=== PATIENT | female | born 1980 | race Caucasian/White ===

== ENCOUNTER 2023-10-22 08:57 | Outpatient (OUT) | payer SELFPAY ==
--- NOTE | 2023-10-22 09:02 | MM_ITS ---
Patient Name: MARTHA VELEZ MR#: [id number] : 1980 Exam Date: 10/22/2023 Ordering Doctor: DR JEN HAMMOND . RADIOLOGY REPORT PROCEDURE: MM TOMOSYNTHESIS SCREENING BI COMPARISON: MG MAMM DX 3D RT CAD, 05/09/2022. MG MAMM DX 3D RT CAD, 11/18/2022. INDICATIONS: screening Calculator Name NCI Breast Cancer Risk Assessment Tool 5 Year Breast Cancer Risk Not Reported. Lifetime Breast Cancer Risk Not Reported. Personal Breast Cancer No Personal Ovarian Cancer No Treatments None Family Cancers None LOCATION: [facility] BREAST COMPOSITION: Heterogeneously dense,which may obscure small masses. FINDINGS: DIAGNOSTIC CATEGORY 2--BENIGN FINDING. NO CHANGE FROM COMPARISON. Scattered benign-appearing lymph nodes are present. RIGHT BREAST: No significant suspicious finding. LEFT BREAST: No significant suspicious finding. RECOMMENDATIONS: ROUTINE MAMMOGRAM AND CLINICAL EVALUATION IN 12 MONTHS. PLEASE NOTE: A NORMAL MAMMOGRAM DOES NOT EXCLUDE THE POSSIBILITY OF BREAST CANCER. A CLINICALLY SUSPICIOUS PALPABLE LUMP SHOULD BE BIOPSIED. Dictated by: Maxim Mckeon MD on 10/23/2023 at 09:37 Approved by: Maxim Mckeon MD on 10/23/2023 at 09:40
--- NOTE | 2023-10-22 09:30 | CA_ITS ---
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1980 Requested By: JEN HAMMOND Order Number: [id number] Reading MD: ALEXUS VELAZCO Interpretive Statements Predominant rhythm is sinus with average rate of 83 bpm Tachycardia - max rate of 140 bpm (sinus tachycardia) - longest episode of 26min 46sec with rates between 113-128 bpm Bradycardia - min rate of 54 bpm - longest episode of 30sec with rates between 55-58 bpm Ventricular ectopy - 61 total, < 1% - 61 PVC Patient triggered events: 7 - associated with symptoms of CP, palpitations, lightheadedness - associated with rate of 100 and the remainder NSR Impression: Predominant rhythm is sinus with average rate of 83 bpm Fastest rate of 140 bpm (sinus tachycardia) and slowest rate of 54 bpm 61 PVC No atrial fibrillation No blocks or pauses Electronically Signed On 11-02-2023 18:14:32 EDT by ALEXUS VELAZCO
[2023-10-22 10:08] LABS: Basophils Absolute Auto 0.1 10^3/uL (0.0-0.1); Basophils Percent Auto 0.5 % (0.2-2.0); Eosinophils Absolute Auto 0.1 10^3/uL (0.0-0.7); Hematocrit 40.7 % (36.0-48.0); Hemoglobin 13.1 g/dL (12.0-16.0); Immature Granulocytes Abs Auto 0.05 10^3/uL (0.00-0.03); Immature Granulocytes Pct Auto 0.5 % (0.0-0.5); Lymphocytes Absolute Auto 1.3 10^3/uL (1.2-3.8); Lymphocytes Percent Auto 12.7 % (20.5-60.0); Mean Corpuscular HGB Conc 32.2 g/dL (29.9-35.2); Mean Corpuscular Hemoglobin 31.1 pg (26.7-34.0); Mean Corpuscular Volume 96.7 fL (81.0-99.0); Mean Platelet Volume 9.5 fL (9.5-13.5); Monocytes Absolute Auto 0.5 10^3/uL (0.3-0.8); Monocytes Percent Auto 4.9 % (1.7-12.0); Neutrophils Absolute Auto 7.9 10^3/uL (1.4-6.5); Neutrophils Percent Auto 80.4 % (43.0-75.0); Platelet Count 283 10^3/uL (150-450); Red Blood Count 4.21 10^6/uL (4.20-5.40); Red Cell Distribution Width 12.4 % (11.0-15.0); White Blood Count 9.8 10^3/uL (4.0-11.0)
[2023-10-22 10:17] LABS: Estimated Average Glucose 105 mg/dL; Glycohemoglobin A1C 5.3 % (4.5-6.2)
[2023-10-22 10:44] LABS: Alanine Aminotransferase 27 U/L (14-59); Albumin Globulin Ratio 0.8; Albumin Level 3.5 g/dL (3.4-5.0); Alkaline Phosphatase 86 U/L (46-116); Anion Gap 15.2; Aspartate Amino Transferase 16 U/L (15-37); BUN Creatinine Ratio 11.4; Bilirubin Direct <0.1 mg/dL (0.0-0.2); Bilirubin Total 0.2 mg/dL (0.2-1.0); Calcium 8.8 mg/dL (8.5-10.1); Carbon Dioxide 24.9 mmol/L (21.0-32.0); Chloride 104 mmol/L (98-107); Chol HDL Ratio 3.2; Cholesterol 201 mg/dL (<=200); Estimated GFR (African America >60 (>=60); Estimated GFR (Non-African Ame >60 (>=60); Globulin 4.3 g/dL; Glucose 97 mg/dL (74-106); HDL Cholesterol 62 mg/dL (40-60); Potassium 4.1 mmol/L (3.5-5.1); Sodium 140 mmol/L (136-145); Thyroid Stimulating Hormone 1.478 uIU/mL (0.358-3.740); Total Protein 7.8 g/dL (6.4-8.2); Triglycerides 60 mg/dL (<=150)
== END 2023-10-22 08:58 | disposition home or self-care (01) ==
LOC: MAMMO 08:57
PROVIDERS: PCP Family Medicine; Visit Provider Family Medicine
DX: Z00.00 Encounter for general adult medical examination without abnormal findings (principal)
CPT/HCPCS: 36415; 77063; 77067; 80048; 80061; 80076; 83036; 84443; 85025; 93246